=== PATIENT | male | born 1940 | race Caucasian/White ===

== ENCOUNTER → 2017-11-18 10:39 | Outpatient (CLI) | payer MEDICARE, OTHER, SELFPAY ==
[2017-11-18 11:59] LABS: PSA,Total- Diagnostic 1.95 ng/mL (0.0-4.0)
== END ==
PROVIDERS: Family Provider Family Medicine; PCP Family Medicine; Visit Provider Urology
DX: R97.20 Elevated prostate specific antigen [PSA] (principal)
CPT/HCPCS: 36415; 84153

== ENCOUNTER → 2018-06-26 08:54 | Outpatient (CLI) | payer MEDICARE, OTHER, SELFPAY ==
[2016-01-01 20:15] VITALS: BMI 22.6
[2018-06-26 10:07] LABS: PSA,Total - Annual Screen 2.32 ng/mL (0.00-4.00)
== END ==
PROVIDERS: Family Provider Family Medicine; PCP Family Medicine; Referring Provider Urology; Visit Provider Urology
DX: Z12.5 Encounter for screening for malignant neoplasm of prostate (principal)
CPT/HCPCS: 36415; 84153; G0103

== ENCOUNTER → 2019-07-12 10:51 | Outpatient (CLI) | payer MEDICARE, OTHER, SELFPAY ==
[2016-01-01 20:15] VITALS: BMI 22.6
[2019-07-12 13:05] LABS: PSA,Total- Diagnostic 2.45 ng/mL (0.0-4.0)
== END ==
PROVIDERS: Family Provider Family Medicine; PCP Family Medicine; Referring Provider Urology; Visit Provider Urology
DX: N40.1 Benign prostatic hyperplasia with lower urinary tract symptoms (principal)
CPT/HCPCS: 36415; 84153

== ENCOUNTER 2020-09-25 15:31 | Outpatient (RCR) | payer MEDICARE, SELFPAY ==
[2016-01-01 20:15] VITALS: BMI 22.6
== END 2020-09-25 23:59 ==
LOC: IMMUN 15:31
PROVIDERS: PCP Family Medicine; Visit Provider Family Medicine
DX: Z23 Encounter for immunization (principal)
CPT/HCPCS: 0011A; 0012A; 91301

== ENCOUNTER → 2020-11-03 07:40 | Outpatient (CLI) | payer MEDICARE, OTHER, SELFPAY ==
--- NOTE | 2020-11-03 07:42 | CT_ITS ---
INDICATION: ACUTE RECRRENT MAXILLARY SINUSITIS EXAMINATION: CT SINUSES - CT Sinuses W/O Contrast Injection TECHNIQUE: Helically acquired images were obtained of the paranasal sinuses. A radiation dose optimization technique was used for this scan. IV Contrast dosage and agent: COMPARISON: None. FINDINGS: FRONTAL SINUSES AND RECESSES: Clear. ETHMOID AIR CELLS: There is mucoperiosteal thickening of multiple ethmoidal air cells bilaterally. There are a few fluid-filled mastoid air cells bilaterally. MAXILLARY SINUSES: There is mucoperiosteal thickening of both maxillary sinuses. OSTIOMEATAL COMPLEXES: There are patent meatotomy defects bilaterally. SPHENOID SINUSES: There is mucoperiosteal thickening of the sphenoidal sinuses. SPHENOETHMOIDAL RECESSES: Clear. ANCILLARY FINDINGS: NASAL TURBINATES: Unremarkable. NASAL SEPTUM: There is nasal septal deviation to the right. ORBITS: Unremarkable. VISUALIZED DENTITION: No periodontal osseous erosion. ANTERIOR CRANIAL FOSSA: Unremarkable. There is calcific ASCVD of both carotid bifurcations. CT/Sinus/Facial Bone IMPRESSION: There is mild chronic ethmoidal maxillary and sphenoidal sinusitis, bilaterally. 2. There are patent meatotomy defects bilaterally. 3. Calcific ASCVD of both carotid bifurcations. Electronically Signed: Nishant He MD at 11:45 EDT Tel , Service support ,
== END ==
PROVIDERS: PCP Family Medicine; Referring Provider Otolaryngology Otolaryngology/Facial Plastic Surgery; Visit Provider Otolaryngology Otolaryngology/Facial Plastic Surgery
DX: J01.01 Acute recurrent maxillary sinusitis (principal)
CPT/HCPCS: 70486

== ENCOUNTER 2021-09-01 11:38 | Outpatient (CLI) | payer MEDICARE, OTHER, SELFPAY ==
[2021-09-01 13:53] LABS: PSA,Total- Diagnostic 2.91 ng/mL (0.0-4.0)
== END 2021-09-01 23:59 | disposition short-term general hospital (02) ==
LOC: LAB 11:40
PROVIDERS: PCP Family Medicine; Visit Provider Urology
DX: N40.0 Benign prostatic hyperplasia without lower urinary tract symptoms (principal)
CPT/HCPCS: 36415; 84153

== ENCOUNTER → 2022-08-16 | Outpatient (CLI) | payer MEDICARE, OTHER, SELFPAY ==
[2022-08-16 10:47] LABS: PSA,Total - Annual Screen 2.59 ng/mL (0.00-4.00)
== END | disposition home or self-care (01) ==
LOC: LAB 09:24
PROVIDERS: PCP Family Medicine; Referring Provider Registered Nurse; Visit Provider Registered Nurse
DX: Z12.5 Encounter for screening for malignant neoplasm of prostate (principal)
CPT/HCPCS: 36415; 84153; G0103

== ENCOUNTER 2022-09-09 05:43 | Emergency (ER) | payer MEDICARE, OTHER, SELFPAY ==
[2022-09-09 05:46] VITALS: PULSE 57; RESP 18; TEMP 36.6; O2SAT 96; BMI 26.9
--- NOTE | 2022-09-09 05:52 | CT_ITS ---
STUDY: CT ABDOMEN AND PELVIS WITHOUT CONTRAST REASON FOR EXAM: Male, 82 years old. Right flank pain. TECHNIQUE: Transaxial images were obtained from the dome of the diaphragm to the symphysis pubis without oral contrast, and without intravenous contrast. Sagittal and coronal images were reconstructed. Individualized dose optimization techniques were used for this CT. COMPARISON: January 01, 2016 CT abdomen pelvis. FINDINGS: Partially visualized lower chest: Small nodules which are likely benign and do not require follow-up and mild atelectasis unchanged Liver: No concerning lesions. Numerous small cysts. Gallbladder and biliary tree: No visible gallstones. No pericholecystic inflammation. No biliary ductal dilation. Pancreas: No pancreatic lesions or inflammation. Spleen: Normal size, no splenic lesions. Adrenal glands: No concerning masses. Kidneys and ureters: 3 mm proximal right ureteral stone with mild more proximal hydronephrosis and hydroureter. More distal right ureter unremarkable. No left hydronephrosis or left ureteral stones. Numerous residual renal stones bilaterally, greater than 10 in each kidney, none larger than 4 mm. Small renal cysts. Bowel: Appendix not identified. No evidence of appendicitis. No obstruction or inflammation of the bowel. Sigmoid colon diverticulosis, no diverticulitis. Urinary bladder: Mildly thick-walled. No stones. Reproductive:Prostate enlarged. Vascular: No abdominal aortic aneurysm. Retroperitoneal and peritoneal spaces: No ascites or free air. No retroperitoneal lesions. Osseous: No acute osseous abnormality. Mild chronic depression L2 superior endplate unchanged. Abdominal and pelvic wall: No concerning findings. Any findings described in the findings sections and not included in the impression are incidental and do not require imaging follow-up. CT/Abdomen/Pelvis without Cont IMPRESSION: 3 mm proximal right ureteral stone with mild obstruction. Large number of small in size residual renal stones. Enlarged prostate, other chronic findings as above. Electronically Signed: Gurjit Merino MD at 7:04 EST Reading Location ID and State: [facility] [place] Tel , Service support ,
--- NOTE | 2022-09-09 05:53 | EX.ED.DYSGE1 ---
HPI History of Present Illness Chief Complaint: Flank Pain Informant: patient Onset/Context/Timing Onset: Today Narrative Narrative: Patient presents secondary to right flank pain. He states he woke around 230 this morning with pain in the right flank region. He felt fine when he went to bed last evening. He denies history of kidney stone. He states he always has some microscopic blood in his urine but he has not been able to see any blood in his urine recently and has no dysuria. [facility] Medical History BPH (benign prostatic hyperplasia) Hyperlipemia Home Medications finasteride 5 mg tablet 5 mg PO DAILY 01/01/16 [History Last Taken 01/01/16] lactase 3,000 unit chewable tablet (Lactaid) 3,000 unit PO DAILY PRN Not Specified 01/01/16 [History Last Taken Unknown] metoclopramide HCl 10 mg tablet 5 mg PO TIDCM 01/01/16 [History Last Taken Unknown] niacin 500 mg tablet,extended release 24 hr 500 mg PO TID 01/01/16 [History Last Taken Unknown] tamsulosin 0.4 mg capsule 0.4 mg PO DAILY 01/01/16 [History Last Taken 12/30/15] tramadol 50 mg tablet 50 mg PO Q6H PRN PRN Pain #30 tabs 01/02/16 [Rx Last Taken Unknown] hydrocodone-acetaminophen 5-325mg 5mg-325mg 1 tab PO Q6H PRN PRN Pain 3 days #10 TABLETS 09/09/22 [Rx Last Taken Unknown] ibuprofen 400 mg tablet 400 mg PO Q6H PRN pain #20 tabs 09/09/22 [Rx Last Taken Unknown] ondansetron 4 mg disintegrating tablet 4 mg PO Q8H PRN PRN Nausea #10 tabs 09/09/22 [Rx Last Taken Unknown] Allergy/AdvReac Type Severity Reaction Status Date / Time ampicillin Allergy Hives Verified 01/01/16 16:04 iodine Allergy Hives Verified 01/01/16 16:04 Sulfa (Sulfonamide Allergy Hives Verified 01/01/16 16:04 Antibiotics) venom-honey bee Allergy Hives Verified 01/01/16 16:04 [bee venom (honey bee)] Social History Smoking Status: Never smoker ROS ROS ED Constitutional Constitutional ED: Denies chills or fever(s) Eyes Eyes: Denies change in vision or discharge from eye(s) ENT ENT ED: Denies discharge from eye(s), rhinorrhea or sore throat Cardiovascular Cardiovascular: Denies chest pain or palpitations Respiratory/Chest Respiratory/Chest: Denies cough or dyspnea Gastrointestinal Gastrointestinal: Denies abdominal pain, diarrhea, nausea or vomiting Genitourinary Genitourinary ED: Denies difficulty urinating or dysuria Musculoskeletal Musculoskeletal: Reports back pain; Denies extremity pain Integumentary Denies Abrasions or rash Neurologic Neurologic: Denies headache(s) or weakness Allergic/Immunologic Allergic/Immunologic ED: Denies lip swelling or urticaria EXAM Physical Exam Const Vital Signs: 09/09/22 05:46 09/09/22 06:00 09/09/22 06:13 Temperature 97.8 F Temperature Source Temporal Pulse Rate 57 L 61 Respiratory Rate 18 15 15 Blood Pressure 167/72 H Blood Pressure Mean 103 Pulse Ox 96 97 Oxygen Delivery Method Room Air Room Air Room Air 09/09/22 06:14 Temperature Temperature Source Pulse Rate Respiratory Rate Blood Pressure 167/72 H Blood Pressure Mean 103 Pulse Ox Oxygen Delivery Method Positive well nourished and well developed General Appearance ED: well developed HEENT Reports normocephalic and head/scalp atraumatic Eyes PERRL and EOMs intact bilaterally Neck supple Chest Wall inspection of chest normal and palpation of chest normal Resp normal respiratory effort and clear to auscultation bilaterally Cardio regular rate and regular rhythm GI non-tender Auscultation: hypoactive bowel sounds Palpation: soft Back/Spine General Back: CVA tenderness right Extremity normal to inspection Neuro oriented x3 and no sensory deficits noted Sensorium / Orientation: alert Motor Exam: strength 5/5 throughout Psych mental status grossly normal Skin no rashes or lesions noted MDM MDM MDM Narrative Medical decision making narrative: Patient was given morphine, Zofran, 15 mg of Toradol, and IV fluids. Lab work obtained to evaluate for leukocytosis, anemia, electrolyte derangement. Urinalysis obtained to evaluate for hematuria or infection. CT flank ordered due to concern for kidney stone. Lab Data Attestation: I reviewed the patient's lab results. Labs: Laboratory Results - last 24 hr 0209/09/22 09/09/22 06:00 06:00 06:35 WBC 7.6 RBC 5.37 Hgb 15.6 Hct 47.8 MCV 89.0 MCH 29.1 MCHC 32.6 RDW Std Deviation 44.0 H RDW Coeff of Lakhwinder 13.4 Plt Count 305 MPV 8.7 Immature Gran % (Auto) 0.400 Neut % (Auto) 66.6 Lymph % (Auto) 18.3 L [place] % (Auto) 11.5 H Eos % (Auto) 2.4 Baso % (Auto) 0.8 Absolute Neuts (auto) 5.1 Absolute Lymphs (auto) 1.40 Nucleated RBC % 0 Sodium 140 Potassium 4.3 Chloride 105 Carbon Dioxide 27.0 Anion Gap 8 BUN 22 H Creatinine 1.21 Estim Creat Clear Calc 44.01 Est GFR (MDRD) Af Amer 74 Est GFR (MDRD) Non-Af 61 BUN/Creatinine Ratio 18.2 Glucose 129 H Calcium 9.1 Urine Color Yellow Urine Clarity Clear Urine pH 5.0 Ur Specific [place] 1.025 Urine Protein 30 H Urine Glucose (UA) Normal Urine Ketones Negative Urine Occult Blood 50 H Urine Nitrite Negative Urine Bilirubin Negative Urine Urobilinogen Normal Ur Leukocyte Esterase Negative Urine RBC 0-5 SEEN Urine WBC 0-5 SEEN Ur Squamous Epith Cells 0 SEEN Urine Bacteria 0 SEEN Urine Mucus 0 SEEN Radiography Diagnostic Testing: Clinical Impression(s) from Imaging Studies Abdomen/Pelvis CT 09/09/22 05:52 IMPRESSION: 3 mm proximal right ureteral stone with mild obstruction. Large number of small in size residual renal stones. Enlarged prostate, other chronic findings as above. Electronically Signed: Gurjit Merino MD at 7:04 EST Reading Location ID and State: [facility] [place] Tel , Service support , Treatment and Re-Evaluation Narrative: CBC and chemistry studies are unremarkable. Creatinine is 1.21. Urinalysis reveals no infection. He is 0-5 red cells and 0-[address] flank reveals a 3 mm proximal right ureter stone with mild obstruction. He has multiple bilateral renal stones. On repeat evaluation patient states his pain is significantly improved. Test results are discussed with patient and at bedside. He will be given analgesics for home. He is known to Dr. Henderson and will call his office for follow-up. Return instructions have also been given. Discharge Plan Triage Chief Complaint: Flank Pain ED Provider: Shahnaz Barroso Dx/Rx/DC Orders Clinical Impression: Ureterolithiasis Instructions: ED Kidney Stone w/ Colic Prescriptions: New hydrocodone-acetaminophen 5-325 mg tablet 1 tab PO Q6H PRN PRN (Reason: Pain) 3 Days Qty: 10 0RF ondansetron 4 mg tablet,disintegrating 4 mg PO Q8H PRN PRN (Reason: Nausea) Qty: 10 0RF ibuprofen 400 mg tablet 400 mg PO Q6H PRN (Reason: pain) Qty: 20 0RF No Action tamsulosin 0.4 MG capsule 0.4 mg PO DAILY Label Comments: Prostate finasteride 5 MG tablet 5 mg PO DAILY Label Comments: Prostate niacin 500 MG tablet extended release 24 hr 500 mg PO TID Label Comments: Cholesterol metoclopramide HCl 10 MG tablet 5 mg PO TIDCM Label Comments: Nausea lactase [Lactaid] 3,000 UNIT tablet,chewable 3,000 unit PO DAILY PRN (Reason: Not Specified) Label Comments: Lactose intolerance tramadol 50 MG tablet 50 mg PO Q6H PRN PRN (Reason: Pain) Qty: 30 0RF Label Comments: Pain Primary Care Provider: Dwain Palomo Referrals: Dwain Palomo DO [Primary Care Provider] - Ministerio Henderson MD [Med Staff - Active Staff] - 5-7 Days Disposition Disposition: Home, Self Care
[2022-09-09 06:00] VITALS: BP 167/72; PULSE 61; RESP 15; O2SAT 97
[2022-09-09 06:06] LABS: Absolute Neutrophil Count 5.1 X10^3/uL (2.0-7.7); Basophil# 0.06 X10^3/uL; Basophil% 0.8 % (0-1); Eosinophil# 0.18 X10^3/uL; Eosinophils% 2.4 % (0-5); Hematocrit 47.8 % (40-54); Hemoglobin 15.6 g/dL (13.0-16.5); Lymphocyte % 18.3 % (19-41); Mean Corp Hgb Conc 32.6 g/dL (32-36); Mean Corpuscular Hgb 29.1 pg (27.0-32.0); Mean Platelet Vol. 8.7 fl (6.2-12.0); Monocyte# 0.88 X10^3/uL; Monocyte% 11.5 % (0-10); NRBC Flagged by Analyzer 0 % (0-5); Neutrophil # 5.08 X10^3/uL (2.7-7.7); Neutrophil % 66.6 % (47-70); Platelet Count 305 K/mm3 (150-450); RBC Distribution Width CV 13.4 % (11.6-14.6); Red Blood Count 5.37 M/mm3 (4.6-6.2); White Blood Count 7.6 K/mm3 (4.4-11.0)
[2022-09-09] MEDS: Ondansetron 4 MG/2 ML Vial IV (06:06)
[2022-09-09] MEDS: Ketorolac 15 MG/ML Vial IV (06:07)
[2022-09-09] MEDS: Morphine 4 MG/ML Syringe IV (06:08)
[2022-09-09] MEDS: 0.9% Normal Saline 1,000 ML 150 ML IV (06:09)
[2022-09-09 06:13] VITALS: RESP 15
[2022-09-09 06:14] VITALS: BP 167/72
[2022-09-09 06:20] LABS: Anion Gap 8 (5-15); BUN 22 mg/dL (7-18); BUN/Creat Ratio 18.2 RATIO (10-20); Calcium,Total 9.1 mg/dL (8.5-10.1); Chloride 105 mmol/L (98-107); Creatinine, Serum 1.21 mg/dL (0.70-1.30); EST Glomerular Filtration Rate 61 mL/min (>60); Est Glom Filt Rate - Afr Amer 74 mL/min (>60); Estimated Creatinine Clearance 44.01 ml/min; Glucose 129 mg/dL (74-106); Potassium 4.3 mmol/L (3.5-5.1); Sodium Level 140 mmol/L (136-145)
[2022-09-09 06:41] LABS: Bacteria 0 SEEN /hpf (None Seen); Mucous, Urine 0 SEEN /hpf (<or=2+); Squamous Epithelial Cells - UA 0 SEEN /hpf (0-5)
[2022-09-09 06:44] LABS: Color, Urine Yellow (Yellow); Glucose, Dipstick Normal (Normal); Ketone-Dipstick Negative (Negative); Leukocyte Esterase-Dipstick Negative /ul (Negative); Nitrite-Dipstick Negative (Negative); Occult Blood-Urine 50 /ul (Negative); Protein-Dipstick 30 mg/dl (Negative); Specific Gravity, Urine 1.025 (1.002-1.030); Urine Bilirubin Dipstick Negative (Negative); Urine Clarity Clear (Clear); Urine Urobilinogen Normal (Normal)
[2022-09-09 07:09] LABS: Red Blood Cells-Urine 0-5 SEEN /hpf (0-5); White Blood Cells 0-5 SEEN /hpf (0-5)
[2022-09-09 07:27] VITALS: BP 124/69; PULSE 75; RESP 16; O2SAT 98
== END 2022-09-09 07:30 | disposition home or self-care (01) ==
PROVIDERS: Emergency Provider Emergency Medicine; PCP Family Medicine; Visit Provider Emergency Medicine
DX: N20.1 Calculus of ureter (principal)
CPT/HCPCS: 74176; 80048; 81001; 85025; 96374; 96375; 99283; J7030; A4216; J2405

== ENCOUNTER → 2023-09-22 | Outpatient (CLI) | payer MEDICARE, OTHER, SELFPAY | END | disposition home or self-care (01) | LOC: LAB 10:29 | PROVIDERS: PCP Family Medicine; Referring Provider Urology; Visit Provider Urology | DX: N40.1 Benign prostatic hyperplasia with lower urinary tract symptoms (principal) | CPT/HCPCS: 36415; 84153 ==

== ENCOUNTER → 2024-03-20 | Outpatient (CLI) | payer MEDICARE, OTHER, SELFPAY ==
--- NOTE | 2024-03-20 | PROSBIL_PTH ---
PATIENT: ROXY CASTANEDA LOC: [facility] U#:[id number] AGE/SX: 83/M ROOM: RE03/20/[address]: Dr. Ministerio Henderson MD : 1940 BED: DIS: 03/20/2024 SPEC #: [id number] RECD: 03/20/24 15:00 STATUS: YOHANNES CHRISTIANO #: [id number] BREA: 03/20/24 00:[address]: Ministerio Henderson DEPT: SURGICAL PATHOLOGY RECD BY: Nick Nicole ENTERED: 03/21/24 08:57 SP TYPE: PROST BX SERINA DR: Dr. Dwain Palomo DO Tissues: A - PROSTATE RIGHT B - PROSTATE RIGHT C - PROSTATE RIGHT D - PROSTATE LEFT E - PROSTATE LEFT F - PROSTATE LEFT Procedures: PROSTATE BX HEADER OPERATION: Prostate biopsy PRE-OP DIAGNOSIS: Elevated PSA TISSUE SUBMITTED: A - Right apex, B - Right mid, C - Right base, D - Left apex, E - Left mid, F - Left base MICROSCOPIC DIAGNOSIS A. Right prostate, apex, core biopsy: Chronic prostatitis. See comment. B. Right prostate, mid, core biopsy: Adenocarcinoma. [place] grade: 3+3 (6) Cores involved: 1/2 Tissue involved: 2 % Greatest tumor length: 0.5 millimeters See comment. C. Right prostate, base, core biopsy: Adenocarcinoma. [place] grade: 3+4 (7) Cores involved: 1/2 Tissue involved: 35 % Greatest tumor length: 4.5 millimeters Perineural invasion present. D. Left prostate, apex, core biopsy: Adenocarcinoma. [place] grade: 6(3+3) Cores involved: 1/2 Tissue involved: 2% Greatest tumor length: 0.5 millimeters See comment. E. Left prostate, mid, core biopsy: Focal high-grade prostatic intraepithelial neoplasia (HGPIN). Mild chronic inflammation. See comment. F. Left prostate, base, core biopsy: Focal high-grade prostatic intraepithelial neoplasia (HGPIN). See comment. AM/ 03/22/2024 COMMENT A, B, D, E, F. Immunohistochemistry ([id number]) supports the above diagnosis. Case has been reviewed in consultation with Dr. Sun who concurs with the above diagnosis. IDC:[email or web address] MICROSCOPIC DESCRIPTION Slides are reviewed. GROSS DESCRIPTION A - Received is one container designated prostate, right apex. The specimen consists of two elongated fragments of light gonzalez-white soft tissue each measuring 1.5 cm in length and 0.1 cm in diameter. The specimen is totally submitted in one cassette. B - Received is one container designated prostate, right mid. The specimen consists of two elongated fragments of light gonzalez-white soft tissue each measuring 1.3 cm in length and 0.1 cm in diameter. The specimen is totally submitted in one cassette. C - Received is one container designated prostate, right base. The specimen consists of two elongated fragments of light gonzalez-white soft tissue each measuring 1.5 cm in length and 0.1 cm in diameter. The specimen is totally submitted in one cassette. D - Received is one container designated prostate, left apex. The specimen consists of two elongated fragments of light gonzalez-white soft tissue each measuring 1.0 cm in length and 0.1 cm in diameter. The specimen is totally submitted in one cassette. E - Received is one container designated prostate, left mid. The specimen consists of two elongated fragments of light gonzalez-white soft tissue measuring 0.8 and 1.7 cm in length and 0.1 cm in diameter. The specimen is totally submitted in one cassette. F - Received is one container designated prostate, left base. The specimen consists of two elongated fragments of light gonzalez-white soft tissue measuring 0.6 and 1.2 cm in length and 0.1 cm in diameter. The specimen is totally submitted in one cassette. SJ.mr 03/21/2024 TC:0 CPT: G0146
--- NOTE | 2024-03-20 | IMM_PTH ---
PATIENT: ROXY CASTANEDA LOC: [facility] U#:[id number] AGE/SX: 83/M ROOM: RE03/20/[address]: Dr. Ministerio Henderson MD : 1940 BED: DIS: 03/20/2024 SPEC #: [id number] RECD: 03/22/24 10:13 STATUS: YOHANNES REQ #: [id number] BREA: 03/20/24 00:[address]: Ministerio Henderson DEPT: IMMUNOHISTOCHEMISTRY RECD BY: Saulo Mascorro ENTERED: 03/22/24 10:14 SP TYPE: IMMUNO OTHR DR: Dr. Dwain Palomo DO Tissues: A - PROSTATE RIGHT B - PROSTATE RIGHT D - PROSTATE LEFT E - PROSTATE LEFT F - PROSTATE LEFT Procedures: 34BE12 (add) P40 (add) P40 (initial) PHYSICIAN & INSTITUTION [address] [address] SPECIMEN INFORMATION: Tissue Source: A- Right apex, B- Right mid, D- Left apex, E- Left mid, F- Left base Clinical Info: Elevated PSA Specimen Number: [id number] A, B, D, E ,F CPT code: 26403,13757o8 METHODOLOGY: Deparaffinized sections of prefer/formalin-fixed tissue or PAP/DQ stained slides are incubated with monoclonal/polyclonal antibodies/oligonucleotide probes. Localization is made via biotin free immunoperoxidase method. Appropriate controls are performed and reacted as expected. Results on target cell population are indicated in the following table: RESULTS: ANTIBODY / CLONE RESULT Block A P40 (BC28) positive 34BE12 (34BE12) positive Block B P40 (BC28) negative 34BE12 (34BE12) negative Block D P40 (BC28) negative 34BE12 (34BE12) negative Block E P40 (BC28) positive 34BE12 (34BE12) positive Block F P40 (BC28) positive 34BE12 (34BE12) positive These tests were developed and their performance characteristics determined by [facility]. They may not have been cleared or approved by the U.S. Food and Drug Administration. The FDA has determined that such clearance or approval is not necessary. The above immunohistochemical/dualISH markers are ordered and reviewed by the Pathologist. INTERPRETATION: A. Prostate, right apex, core biopsy: Bening prostatic tissue. B. Prostate, right mid, core biopsy: Adenocarcinoma. D. Prostate, left apex, core biopsy: Adenocarcinoma. E. Prostate, left mid, core biopsy: Focal high-grade prostatic intraepithelial neoplasia (HGPIN). F. Prostate, left base, core biopsy: Focal high-grade prostatic intraepithelial neoplasia (HGPIN). AM/mr 03/23/2024
== END | disposition home or self-care (01) ==
LOC: LABSPEC 16:22
PROVIDERS: PCP Family Medicine; Referring Provider Urology; Visit Provider Urology
DX: R97.20 Elevated prostate specific antigen [PSA] (principal)
CPT/HCPCS: 88305; 88341; 88342; G0416

== ENCOUNTER → 2024-04-12 | Outpatient (CLI) | payer MEDICARE, OTHER, SELFPAY ==
--- NOTE | 2024-04-12 07:04 | NM_ITS ---
CLINICAL: 83-year-old male with history of primary prostate carcinoma. WHOLE BODY 99m Tc MDP RADIONUCLIDE BONE SCINTIGRAPHY COMPARISON: None available FINDINGS: Following the intravenous administration of 26.7 mCi of 99m Tc MDP, whole body bone images reveal: 1. Increased radiopharmaceutical concentration is defined in the acromioclavicular and sternoclavicular compartments of both shoulders, the left wrist and hand, the patellofemoral compartment of both knees, the lower cervical spine posteriorly on the left, the fifth lumbar vertebra posteriorly on the left. 2. The remaining skeletal structures are scintigraphically unremarkable with normal-appearing renal images and urinary bladder activity identified. NM/Bone Scan Whole Body IMPRESSION: 1. 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 2. There is no definitive scintigraphic evidence of diffuse skeletal metastatic disease on the current examination. Electronically Signed: Abilio Delgadillo DO at 15:12 EDT ,
== END | disposition home or self-care (01) ==
LOC: NM 07:03
PROVIDERS: PCP Family Medicine; Referring Provider Urology; Visit Provider Urology
DX: C61 Malignant neoplasm of prostate (principal)
CPT/HCPCS: 78306; A9503

== ENCOUNTER → 2024-04-18 | Outpatient (CLI) | payer MEDICARE, OTHER, SELFPAY ==
--- NOTE | 2024-04-18 16:59 | CT_ITS ---
INDICATION: Malignant neoplasm of prostate EXAMINATION: CT ABDOMEN AND PELVIS WITH AND WITHOUT CONTRAST - CT Abdomen And Pelvis WO/W Contrast Injection TECHNIQUE: Helically acquired images were obtained of the abdomen and pelvis both before and after IV contrast. The protocol utilizes one or more of the following dose reduction techniques: automated exposure control, adjustment of mA and/or kV according to patient size,and/or use of iterative reconstruction technique. IV Contrast dosage and agent: 100 mL of Isovue-370 Oral contrast: None. RADIATION DOSAGE (If Supplied By Facility): CTDIvol = ( 19.28 ) mGy, DLP = ( 1877.74 ) mGycm COMPARISON: Prior study dated: 09/09/2022 FINDINGS: LOWER CHEST: Lung bases are clear. No cardiomegaly or pericardial effusion. LIVER: Normal size, shape, and attenuation. Multiple hepatic cysts are seen. No suspicious mass. GALLBLADDER AND BILIARY TREE: No calcified gallstones. No gallbladder distension or wall edema. No intra- or extrahepatic biliary ductal dilation. PANCREAS: No focal cystic or solid mass. SPLEEN: Normal size without focal cystic or solid mass. ADRENAL GLANDS: No nodules. KIDNEYS AND URETERS: Normal renal size and position. No hydronephrosis. Multiple simple cysts which require no specific follow-up. Symmetric excretion on the delayed acquisition. Multiple bilateral renal calculi are noted. Greater than 10 right-sided calculi, measuring up to 0.3 cm at the lower pole, 12 cm from the posterior axillary line. Greater than 8 left-sided calculi measuring up to 0.3 cm well. PERITONEUM: No ascites or free air. No other fluid collection. BOWEL: No evidence of acute appendicitis. No stomach or bowel distension. No focal inflammatory change. Colonic diverticulosis without diverticulitis. LYMPH NODES: No enlarged mesenteric or retroperitoneal lymph nodes. VESSELS: Aorta is non-dilated. Mild atherosclerotic calcification. URINARY BLADDER: Filling defect in the bladder lumen is again noted, likely extending from the prostate. Diffuse bladder wall thickening. REPRODUCTIVE ORGANS: Enlarged prostate. The seminal vesicles appear unremarkable. ABDOMINAL WALL: No discrete abdominal or pelvic wall hernia. BONES: No lytic or blastic abnormality. Mild degenerative changes of the spine. Similar appearance of height loss at the superior endplate of L2. CT/CT Abd/Pelvis W/WO Contrast IMPRESSION: No lymphadenopathy. Enlarged prostate with prominent extension into the bladder, similar to previous. Multiple bilateral nonobstructing renal calculi. Electronically Signed: Angel Reece MD at 22:33 EDT ,
[2024-04-18 17:29] LABS: CREATININE FINGERSTICK < 1.0 mg/dL (0.70-1.30); EGFR FINGERSTICK > 60.0000 mL/min (>60)
== END | disposition home or self-care (01) ==
LOC: CT 16:56
PROVIDERS: PCP Family Medicine; Referring Provider Urology; Visit Provider Urology
DX: C61 Malignant neoplasm of prostate (principal)
CPT/HCPCS: 74178; Q9967

== ENCOUNTER → 2024-10-11 | Outpatient (CLI) | payer MEDICARE, OTHER, SELFPAY ==
[2024-10-11 11:40] LABS: PSA,Total- Diagnostic 2.87 ng/mL (0.00-4.00)
== END | disposition home or self-care (01) ==
LOC: LAB 10:24
PROVIDERS: PCP Family Medicine; Referring Provider Urology; Visit Provider Urology
DX: R97.20 Elevated prostate specific antigen [PSA] (principal)
CPT/HCPCS: 36415; 84153

== ENCOUNTER → 2025-04-03 | Outpatient (CLI) | payer MEDICARE, OTHER, SELFPAY ==
[2025-04-03 11:43] LABS: PSA,Total- Diagnostic 5.18 ng/mL (0.00-4.00)
== END | disposition home or self-care (01) ==
LOC: LAB 10:52
PROVIDERS: PCP Family Medicine; Referring Provider Urology; Visit Provider Urology
DX: C61 Malignant neoplasm of prostate (principal)
CPT/HCPCS: 36415; 84153

== ENCOUNTER → 2025-05-07 | Outpatient (CLI) | payer MEDICARE, OTHER, SELFPAY | END | disposition home or self-care (01) | PROVIDERS: PCP Family Medicine; Referring Provider Urology; Visit Provider Urology | DX: C61 Malignant neoplasm of prostate (principal) | CPT/HCPCS: 78815; A9595 ==